=== PATIENT | male | born 1980 | race African-American/Black ===

== ENCOUNTER 2020-05-02 11:54 | Emergency (ER) | payer SELFPAY ==
--- NOTE | 2020-05-02 12:39 | EDM.PDOC ---
ED HPI GENERAL MEDICAL PROBLEM - General Chief Complaint: Lower Extremity Injury/Pain Stated Complaint: RIGHT LEG PAIN Time Seen by Provider: 05/02/20 12:07 Source of Information: Reports: Patient History Limitations: Reports: No Limitations - History of Present Illness INITIAL COMMENTS - FREE TEXT/NARRATIVE: Patient is a 39 year old male presenting to the ER with c/o right posterior calf pain for the last 2 months, with worsening pain over the last 2 days. He states that the pain is worse with ambulation. He denies and SOB or hx of blood clots. Denies a known injury to the extremity. Right Lower Leg Pain Score (Numeric/FACES): 5 - Related Data Allergies Allergy/AdvReac Type Severity Reaction Status Date / Time No Known Allergies Allergy Verified 05/02/20 12:06 Home Meds: Home Meds . [No Known Home Meds] 05/02/20 [History] Past Medical History - Past Health History Medical/Surgical History: Denies Medical/Surgical History Musculoskeletal History: Reports: Other (See Below) Other Musculoskeletal History: left inner thigh surgery Neurological History: Reports: Headaches, Chronic Social & Family History - Tobacco Use Smoking Status *Q: Current Every Day Smoker Years of Tobacco use: 20 Packs/Tins Daily: 0.5 - Caffeine Use Caffeine Use: Reports: None - Recreational Drug Use Recreational Drug Use: No Review of Systems - Review of Systems Review Of Systems: See Below Constitutional: Reports: No Symptoms. Denies: Chills, Fever, Weakness Eyes: Reports: No Symptoms Ears: Reports: No Symptoms Nose: Reports: No Symptoms Mouth/Throat: Reports: No Symptoms Respiratory: Reports: No Symptoms. Denies: Shortness of Breath, Cough Cardiovascular: Reports: No Symptoms. Denies: Chest Pain, Lightheadedness GI/Abdominal: Reports: No Symptoms Genitourinary: Reports: No Symptoms Musculoskeletal: Reports: Leg Pain (right posterior calf and popliteal fossa) Skin: Reports: No Symptoms Neurological: Reports: No Symptoms Psychiatric: Reports: No Symptoms ED EXAM, GENERAL - Physical Exam Exam: See Below General Appearance: Alert, WD/WN, No Apparent Distress Respiratory/Chest: No Respiratory Distress, Lungs Clear, Normal Breath Sounds, No Accessory Muscle Use, Chest Non-Tender Cardiovascular: Normal Peripheral Pulses, Regular Rate, Rhythm, No Edema, No Gallop, No JVD, No Murmur, No Rub Extremities: Other (tenderness to palpation of the right upper calf and popli teal fossa. No edema or warmth noted.) Neurological: Alert, Oriented, CN II-XII Intact, Normal Cognition, Normal Gait, Normal Reflexes, No Motor/Sensory Deficits Psychiatric: Normal Affect, Normal Mood Skin Exam: Warm, Dry, Intact, Normal Color, No Rash Course - Vital Signs Last Recorded V/S: Last Vital Signs Temp 98.9 F 05/02/20 12:46 Pulse 100 05/02/20 12:46 Resp 18 05/02/20 12:46 BP 157/92 H 05/02/20 13:42 Pulse Ox 96 05/02/20 12:46 - Orders/Labs/Meds Orders: Active Orders 24 hr Category Date Time Status VL Duplex Lwr Ext Veins Ltd Rt [US] Stat Exams 05/02/20 12:21 Taken - Re-Assessments/Exams Free Text/Narrative Re-Assessment/Exam: 05/02/20 14:08 Venous doppler u/s of the right lower extremity was negative for DVT. Discussed with patient that his discomfort is likely due to a muscle strain. Recommend OTC tylenol and ibuprofen as needed for pain. f/u in clinic if pain does not improve ofter the next week. Discharge instructions as documented. Departure - Departure Time of Disposition: 14:17 Disposition: Home, Self-Care 01 Condition: Good Clinical Impression: Muscle strain of right lower leg Qualifiers: Encounter type: initial encounter Qualified Code(s): S86.911A - Strain of unspecified muscle(s) and tendon(s) at lower leg level, right leg, initial encounter - Discharge Information *PRESCRIPTION DRUG MONITORING PROGRAM REVIEWED*: No *COPY OF PRESCRIPTION DRUG MONITORING REPORT IN PATIENT LIZBETH: No Instructions: Muscle Strain, [id number] Referrals: PCP,None [Primary Care Provider] - Forms: ED Department Discharge Additional Instructions: You were seen in the emergency department for right lower leg pain. An ultrasound of your leg was completed and was negative for blood clots. The cause of your pain is likely a muscle strain. Recommend over the counter tylenol or ibuprofen as needed for pain. If you are still having discomfort after 1 week, recommend follow-up in the clinic. Return to the ER as needed. Sepsis Event Note (ED) - Evaluation Sepsis Screening Result: No Definite Risk - Focused Exam Vital Signs: Vital Signs Temp Pulse Resp BP Pulse Ox 05/02/20 13:42 157/92 H 05/02/20 12:46 98.9 F 100 18 158/95 H 96 05/02/20 12:01 98.3 F 118 H 18 192/95 H 97 - My Orders Last 24 Hours: My Active Orders 05/02/20 12:21 VL Duplex Lwr Ext Veins Ltd Rt [US] Stat - Assessment/Plan Last 24 Hours: My Active Orders 05/02/20 12:21 VL Duplex Lwr Ext Veins Ltd Rt [US] Stat
--- NOTE | 2020-05-03 11:26 | US ---
Right lower extremity deep venous ultrasound: Duplex and color Doppler evaluation was obtained of the right common femoral, proximal greater saphenous, superficial femoral, popliteal, posterior tibial and peroneal veins. Left common femoral vein was also evaluated. Comparison: No prior venous imaging is available. Findings: Normal phasic flow, augmentation and compression is seen. Impression: 1. No evidence of venous thrombosis within the right lower extremity or within the left common femoral vein. Diagnostic code #1 Agree with preliminary report issued by [facility] ([facility] preliminary report dictated on 05/02/20, 2:51 PM Central Daylight Time) Study was dictated in MDT
== END 2020-05-02 14:30 | disposition home or self-care (01) ==
LOC: JD.ED 11:54
DX: S86.911A Strain of unspecified muscle(s) and tendon(s) at lower leg level, right leg, initial encounter (principal); F17.210 Nicotine dependence, cigarettes, uncomplicated; X58.XXXA Exposure to other specified factors, initial encounter
CPT/HCPCS: 93971-26-RT; 93971-RT; 99282; 99283-25

== ENCOUNTER 2020-09-19 02:49 | Emergency (ER) | payer SELFPAY ==
[2020-09-19] MEDS ORDERED: Ondansetron 4 MG/2 ML SDV IVPUSH ONE (03:02)
[2020-09-19] MEDS ORDERED: Nitroglycerin 0.4 MG Tab.SL SL ONE (03:02)
[2020-09-19] MEDS ORDERED: Nitroglycerin 0.4 MG Tab.SL ONE (03:03)
[2020-09-19] MEDS ORDERED: HYDROmorphone 0.5 MG/0.5 ML Syringe IVPUSH ONE (03:11)
--- NOTE | 2020-09-19 03:11 | EDM.PDOC ---
ED HPI GENERAL MEDICAL PROBLEM - General Chief Complaint: Chest Pain Stated Complaint: sob Time Seen by Provider: 09/19/20 02:53 Source of Information: Reports: Patient History Limitations: Reports: Language Barrier - History of Present Illness INITIAL COMMENTS - FREE TEXT/NARRATIVE: This is a 40-year-old male. He comes tonight with a 12-hour history of having epigastric pain. The pain is excruciating as he describes it. He states it is very sharp and throbbing and dull. It is constant with waxing and waning episodes. It does not seem to go into his chest or into his arm or into his jaw. He is obviously very uncomfortable and very anxious. Does state that he had some nausea and vomiting with it and anytime he tries to drink water or eat he will throw it back up. Patient states he does smoke and he does drink. Prior to coming to the ER he vomited 3 or 4 times and it seemed like the pain got worse. He does state that there might have been some small flecks of blood in the vomit. He has not been drinking alcohol for at least 1 week. He has no history of surgeries to his abdomen and no history of pancreatitis. His brother is here who speaks a little bit better Yi and were trying to get a good history from him. Chest Pain Score (Numeric/FACES): 10 - Related Data Allergies Allergy/AdvReac Type Severity Reaction Status Date / Time No Known Allergies Allergy Verified 09/19/20 02:54 Home Meds: Home Meds Ondansetron [Zofran] 4 mg PO Q6H PRN #20 tab 09/19/20 [Rx] Pantoprazole Sodium [Protonix] 40 mg PO QAM #40 tablet. 09/19/20 [Rx] Past Medical History - Past Health History Medical/Surgical History: Denies Medical/Surgical History Musculoskeletal History: Reports: Other (See Below) Other Musculoskeletal History: left inner thigh surgery Neurological History: Reports: Headaches, Chronic Social & Family History - Caffeine Use Caffeine Use: Reports: None ED ROS GENERAL - Review of Systems Review Of Systems: See Below Constitutional: Denies: Fever, Chills HEENT: Reports: No Symptoms Respiratory: Denies: Shortness of Breath, Cough Cardiovascular: Reports: Chest Pain Endocrine: Reports: No Symptoms GI/Abdominal: Reports: Abdominal Pain, Hematemesis, Nausea, Vomiting. Denies: Constipation, Diarrhea : Reports: No Symptoms Musculoskeletal: Reports: No Symptoms Skin: Reports: No Symptoms Neurological: Reports: No Symptoms Psychiatric: Reports: No Symptoms Hematologic/Lymphatic: Reports: No Symptoms ED EXAM, GENERAL - Physical Exam Exam: See Below Exam Limited By: Language Barrier General Appearance: Alert, WD/WN, Anxious, Moderate Distress Eye Exam: Bilateral Eye: Normal Inspection Ears: Normal External Exam Nose: Normal Inspection Throat/Mouth: Normal Inspection, Normal Lips, Normal Voice, No Airway Compromise Head: Normocephalic Neck: Supple Respiratory/Chest: No Respiratory Distress, Lungs Clear, Normal Breath Sounds Cardiovascular: Regular Rate, Rhythm, No Murmur, Tachycardia GI/Abdominal: Other (Min is very tight he complains of epigastric pain, if I push anywhere in the epigastric area it seems to worsen his pain that he is describing. He keeps his entire abdomen tight and will not relax it. Sounds are quiet.) Back Exam: Full Range of Motion Extremities: Normal Inspection, Normal Range of Motion Neurological: Alert, Oriented Psychiatric: Anxious Skin Exam: Warm, Dry #1 Interpretation EKG Date: 09/19/20 Time: 03:00 EKG Interpretation Comments: The initial EKG shows a sinus tachycardia rate of 128. He might have a slightly enlarged left atrial however there seems to be baseline artifact. His anterior leads V1, II and III suggest he might have some mild ST elevation but is not clear-cut. I do not see any obvious ischemia. I am concerned that he might have some ST injury occurring so we will watch him very closely. #2 Interpretation EKG Date: 09/19/20 Time: 04:15 EKG Interpretation Comments: This EKG still shows a sinus tachycardia but suggest LVH and an early normal repolarization variant rather than anterior injury. There is no acute ischemia noted. Course - Vital Signs Last Recorded V/S: Last Vital Signs Temp 97.5 F 09/19/20 05:41 Pulse 114 H 09/19/20 05:41 Resp 18 09/19/20 05:41 BP 157/78 H 09/19/20 05:41 Pulse Ox 99 09/19/20 05:41 - Orders/Labs/Meds Orders: Active Orders 24 hr Category Date Time Status EKG 12 Lead [EKG Documentation Completion] [RC] STAT Care 09/19/20 03:01 Active EKG 12 Lead [EKG Documentation Completion] [RC] STAT Care 09/19/20 04:10 Active Abdomen Ltd [US] Stat Exams 09/19/20 04:09 Taken Ang Chest w Cont [MR] Stat Exams 09/19/20 03:34 Taken CXR [Chest 1V Frontal] [CR] Stat Exams 09/19/20 03:03 Taken CBC WITH AUTO DIFF [HEME] Stat Lab 09/19/20 05:20 Results Sodium Chloride 0.9% [Normal Saline] 1,000 ml Med 09/19/20 03:15 Active IV ASDIRECTED Sodium Chloride 0.9% [Normal Saline] 100 ml Med 09/19/20 03:45 Active IV ASDIRECTED Sodium Chloride 0.9% [Saline Flush] Med 09/19/20 03:45 Active 10 ml FLUSH BOLUS Medication Orders Sodium Chloride (Normal Saline) 1,000 mls @ 500 mls/hr IV ASDIRECTED STEFF Last Admin: 09/19/20 03:10 Dose: 500 mls/hr Documented by: CHAYO Sodium Chloride (Normal Saline) 100 mls @ 60 drops/min IV ASDIRECTED STEFF Last Admin: 09/19/20 04:43 Dose: 60 drops/min Documented by: RHONDA Sodium Chloride (Saline Flush) 10 ml FLUSH BOLUS STEFF Last Admin: 09/19/20 04:44 Dose: 10 ml Documented by: ONEIGIN Labs: Laboratory Tests 09/19/20 09/19/20 09/19/20 Range/Units 03:04 03:04 03:04 WBC 16.76 H (4.23-9.07) K/mm3 RBC 4.26 L (4.63-6.08) M/mm3 Hgb 13.8 (13.7-17.5) gm/dl Hct 40.3 (40.1-51.0) % MCV 94.6 H (79.0-92.2) fl MCH 32.4 H (25.7-32.2) pg MCHC 34.2 (32.2-35.5) g/dl RDW Std Deviation 45.1 H (35.1-43.9) fL Plt Count 398 H (163-337) K/mm3 MPV 9.5 (9.4-12.3) fl Neut % (Auto) 87.5 H (34.0-67.9) % Lymph % (Auto) 5.8 L (21.8-53.1) % Lassen % (Auto) 6.4 (5.3-12.2) % Eos % (Auto) 0 L (0.8-7.0) Baso % (Auto) 0.1 (0.1-1.2) % Neut # (Auto) 14.66 H (1.78-5.38) K/mm3 Lymph # (Auto) 0.98 L (1.32-3.57) K/mm3 Lassen # (Auto) 1.07 H (0.30-0.82) K/mm3 Eos # (Auto) 0.00 L (0.04-0.54) K/mm3 Baso # (Auto) 0.01 (0.01-0.08) K/mm3 Manual Slide Review Abnormal smear D-Dimer, Quantitative 3.03 H (0.19-0.50) mg/L Sodium 131 L (136-145) mEq/L Potassium 4.8 (3.5-5.1) mEq/L Chloride 90 L (98-107) mEq/L Carbon Dioxide 14 L (21-32) mEq/L Anion Gap 31.8 H (5-15) BUN 13 (7-18) mg/dL Creatinine 1.1 (0.7-1.3) mg/dL Est Cr Clr Drug Dosing 69.24 mL/min Estimated GFR (MDRD) > 60 (>60) mL/min BUN/Creatinine Ratio 11.8 L (14-18) Glucose 109 H (74-106) mg/dL Calcium 8.8 (8.5-10.1) mg/dL Magnesium 1.9 (1.8-2.4) mg/dl Total Bilirubin 1.3 H (0.2-1.0) mg/dL AST 112 H (15-37) U/L ALT 70 H (16-63) U/L Alkaline Phosphatase 101 (46-116) U/L Troponin I < 0.017 (0.00-0.056) ng/mL C-Reactive Protein <0.2 (<1.0) mg/dL Total Protein 9.2 H (6.4-8.2) g/dl Albumin 4.6 (3.4-5.0) g/dl Globulin 4.6 gm/dL Albumin/Globulin Ratio 1.0 (1-2) Lipase 352 (73-393) U/L 09/19/20 09/19/20 Range/Units 05:20 05:20 WBC 15.57 H (4.23-9.07) K/mm3 RBC 3.59 L (4.63-6.08) M/mm3 Hgb 11.8 L D (13.7-17.5) gm/dl Hct 34.1 L (40.1-51.0) % MCV 95.0 H (79.0-92.2) fl MCH 32.9 H (25.7-32.2) pg MCHC 34.6 (32.2-35.5) g/dl RDW Std Deviation 44.8 H (35.1-43.9) fL Plt Count 337 (163-337) K/mm3 MPV 8.9 L (9.4-12.3) fl Neut % (Auto) 86.6 H (34.0-67.9) % Lymph % (Auto) 5.4 L (21.8-53.1) % Lassen % (Auto) 7.7 (5.3-12.2) % Eos % (Auto) 0 L (0.8-7.0) Baso % (Auto) 0.1 (0.1-1.2) % Neut # (Auto) 13.49 H (1.78-5.38) K/mm3 Lymph # (Auto) 0.84 L (1.32-3.57) K/mm3 Lassen # (Auto) 1.20 H (0.30-0.82) K/mm3 Eos # (Auto) 0.00 L (0.04-0.54) K/mm3 Baso # (Auto) 0.01 (0.01-0.08) K/mm3 Manual Slide Review D-Dimer, Quantitative (0.19-0.50) mg/L Sodium 131 L (136-145) mEq/L Potassium 5.3 H (3.5-5.1) mEq/L Chloride 95 L (98-107) mEq/L Carbon Dioxide 15 L (21-32) mEq/L Anion Gap 26.3 H (5-15) BUN 11 (7-18) mg/dL Creatinine 0.9 (0.7-1.3) mg/dL Est Cr Clr Drug Dosing 84.63 mL/min Estimated GFR (MDRD) > 60 (>60) mL/min BUN/Creatinine Ratio 12.2 L (14-18) Glucose 80 (74-106) mg/dL Calcium 8.0 L (8.5-10.1) mg/dL Magnesium (1.8-2.4) mg/dl Total Bilirubin (0.2-1.0) mg/dL AST (15-37) U/L ALT (16-63) U/L Alkaline Phosphatase (46-116) U/L Troponin I < 0.017 (0.00-0.056) ng/mL C-Reactive Protein (<1.0) mg/dL Total Protein (6.4-8.2) g/dl Albumin (3.4-5.0) g/dl Globulin gm/dL Albumin/Globulin Ratio (1-2) Lipase (73-393) U/L Meds: Medications Generic Name Dose Route Start Last Admin Trade Name Freq PRN Reason Stop Dose Admin Sodium Chloride 1,000 mls @ 500 mls/hr 09/19/20 03:15 09/19/20 03:10 Normal Saline IV 500 mls/hr ASDIRECTED STEFF Administration Sodium Chloride 100 mls @ 60 drops/min 09/19/20 03:45 09/19/20 04:43 Normal Saline IV 60 drops/min ASDIRECTED STEFF Administration Sodium Chloride 10 ml 09/19/20 03:45 09/19/20 04:44 Saline Flush FLUSH 10 ml BOLUS STEFF Administration Discontinued Medications Generic Name Dose Route Start Last Admin Trade Name Freq PRN Reason Stop Dose Admin Al Hydroxide/Mg Hydroxide 30 0 ml 09/19/20 04:25 09/19/20 04:32 ml/ Lidocaine HCl 15 ml PO 09/19/20 04:26 45 ml ONETIME ONE Administration Hydromorphone HCl 0.5 mg 09/19/20 03:11 09/19/20 03:13 Dilaudid IVPUSH 09/19/20 03:12 0.5 mg ONETIME ONE Administration Hydromorphone HCl Confirm 09/19/20 03:12 09/19/20 03:21 Dilaudid Administered 09/19/20 03:13 Not Given Dose 0.5 mg .ROUTE .STK-MED ONE Iopamidol 100 ml 09/19/20 03:40 09/19/20 04:43 Isovue-370 (76%) IVPUSH 09/19/20 03:41 100 ml ONETIME ONE Administration Nitroglycerin 0.4 mg 09/19/20 03:02 09/19/20 03:03 Nitrostat SL 09/19/20 03:03 0.4 mg ONETIME ONE Administration Nitroglycerin Confirm 09/19/20 03:03 09/19/20 03:10 Nitrostat Administered 09/19/20 03:04 Not Given Dose 0.4 mg .ROUTE .STK-MED ONE Ondansetron HCl 4 mg 09/19/20 03:02 09/19/20 03:10 Zofran IVPUSH 09/19/20 03:03 4 mg ONETIME ONE Administration Pantoprazole Sodium 40 mg 09/19/20 03:18 09/19/20 03:25 Protonix Iv IVPUSH 09/19/20 03:19 40 mg ONETIME ONE Administration - Radiology Interpretation Free Text/Narrative:: X-ray does not show any acute infiltrates and his heart appears to be small. I do not see an air outline of the heart to suggest a esophageal tear or Imelda- Gamez tear. Angios CT scan shows no evidence of a pulmonary emboli. He does show circumferential wall thickening of the distal esophagus suggesting esophagitis and is got hepatomegaly with diffuse fatty infiltration. Ultrasound of the upper abdomen shows a diffuse fatty infiltration of the liver but no focal lesions. His gallbladder was normal with no gallbladder stones or wall thickening pancreas appear to be unremarkable. There are no acute fi ndings. - Re-Assessments/Exams Free Text/Narrative Re-Assessment/Exam: 09/19/20 03:22 We provided a single nitroglycerin and it seemed to help and we gave him some Zofran some Dilaudid and Protonix which is made a big difference in his pain and he settled down considerably and is not so anxious. 09/19/20 04:11 Patient is feeling much better after getting back from CT scan. His troponin and lipase and C-reactive protein are all normal. If he has been hurting for the last 12 hours we should see a bump in the troponin. I will repeat an EKG now that he settled down and seems to be much more comfortable. I am also going to get a upper abdominal ultrasound regarding his liver gallbladder and pancreas both. It is noted that his total bili is 1.3. And he has mildly elevated liver enzymes. 09/19/20 04:23 Patient indicates that when he does drink he will take a bottle of [employer] which is RUM and it takes him about 3 days to drink the bottle. He does not normally drink when he works but is just when he is off work. 09/19/20 04:25 Looked up and found to [employer] is 100 proof or 50% alcohol. 09/19/20 05:01 Once the patient settled down were able to take him off his oxygen and his pulse ox is running 96 to 98% on room air. 09/19/20 05:01 He was complaining of a lot of burning in the epigastric area so we gave him a GI cocktail that seemed to numb that area up in the burning almost completely resolved. He is feeling much better now although he still somewhat shaky. 09/19/20 05:25 Ultrasound of the upper abdomen shows a diffuse fatty infiltration of the liver but no focal lesions. His gallbladder was normal with no gallbladder stones or wall thickening pancreas appear to be unremarkable. There are no acute findings. 09/19/20 06:07 His repeat troponin was normal. His white counts began to come down and note the dilution of the hemoglobin by the fluids we gave him. His anion gap is dropping as well as we rehydrate him. I explained to him that he has alcoholic gastritis and esophagitis causing his severe pain and his nausea and vomiting. He must stop drinking alcohol. He is good to be on clear liquid for at least 24 hours and then very soft foods for at least [address] him on some Protonix give him something for nausea and vomiting. Departure - Departure Time of Disposition: 06:13 Disposition: Home, Self-Care 01 Condition: Fair Clinical Impression: Esophagitis, Dehydration Alcoholic gastritis Qualifiers: Chronicity: acute Gastritis bleeding: without bleeding Qualified Code(s): K29.20 - Alcoholic gastritis without bleeding Nausea and vomiting Qualifiers: Vomiting type: unspecified Vomiting Intractability: non-intractable Qualified Code(s): R11.2 - Nausea with vomiting, unspecified Prescriptions: Pantoprazole Sodium [Protonix] 40 mg PO QAM #40 tablet.dr Ondansetron [Zofran] 4 mg PO Q6H PRN #20 tab PRN Reason: Nausea Instructions: Dehydration, Adult, [id number], Nausea and Vomiting, Adult, [id number] Referrals: PCP,None [Primary Care Provider] - Forms: ED Department Discharge, ED Return to Work/School Form Additional Instructions: Take the prescription this morning and get them filled and take the Protonix twice a day for 5 days and then once a day after that, use the Zofran as needed for nausea and vomiting, get some [id number] Maalox or milk of magnesia and when you feel the burning take 30 cc of the Maalox or milk of magnesia to help stop that burning, do not drink alcohol anymore, rest and sleep is much as possible, drink only fluids with no sodas or citrus for the next 24 hours, after that you may have soft foods like applesauce and yogurt but no meats and no vegetables for at least 72 hours, if your symptoms seem to worsen return to the ER, follow-up with your family doctor this week for recheck. Sepsis Event Note (ED) - Focused Exam Vital Signs: Vital Signs Temp Pulse Resp BP BP Pulse Ox 09/19/20 05:41 97.5 F 114 H 18 157/78 H 99 09/19/20 03:03 156/88 H 09/19/20 02:54 97.5 F 137 H 18 157/98 H 100 - My Orders Last 24 Hours: My Active Orders 09/19/20 03:01 EKG 12 Lead [EKG Documentation Completion] [RC] STAT 09/19/20 03:03 CXR [Chest 1V Frontal] [CR] Stat 09/19/20 03:15 Sodium Chloride 0.9% [Normal Saline] 1,000 ml IV ASDIRECTED 09/19/20 03:34 Ang Chest w Cont [MR] Stat 09/19/20 03:45 Sodium Chloride 0.9% [Normal Saline] 100 ml IV ASDIRECTED Sodium Chloride 0.9% [Saline Flush] 10 ml FLUSH BOLUS 09/19/20 04:09 Abdomen Ltd [US] Stat 09/19/20 04:10 EKG 12 Lead [EKG Documentation Completion] [RC] STAT 09/19/20 05:20 CBC WITH AUTO DIFF [HEME] Stat - Assessment/Plan Last 24 Hours: My Active Orders 09/19/20 03:01 EKG 12 Lead [EKG Documentation Completion] [RC] STAT 09/19/20 03:03 CXR [Chest 1V Frontal] [CR] Stat 09/19/20 03:15 Sodium Chloride 0.9% [Normal Saline] 1,000 ml IV ASDIRECTED 09/19/20 03:34 Ang Chest w Cont [MR] Stat 09/19/20 03:45 Sodium Chloride 0.9% [Normal Saline] 100 ml IV ASDIRECTED Sodium Chloride 0.9% [Saline Flush] 10 ml FLUSH BOLUS 09/19/20 04:09 Abdomen Ltd [US] Stat 09/19/20 04:10 EKG 12 Lead [EKG Documentation Completion] [RC] STAT 09/19/20 05:20 CBC WITH AUTO DIFF [HEME] Stat
[2020-09-19] MEDS ORDERED: HYDROmorphone 0.5 MG/0.5 ML Syringe ONE (03:12)
[2020-09-19] MEDS ORDERED: Sodium Chloride 0.9% 1,000 ML IV SCH (03:15)
[2020-09-19] MEDS ORDERED: Pantoprazole 40 MG Vial IVPUSH ONE ×2 (03:18→06:12)
[2020-09-19] MEDS ORDERED: Iopamidol 755 Mg/ML 100 ML Bottle IVPUSH ONE (03:40)
[2020-09-19] MEDS ORDERED: Sodium Chloride 0.9% 10 ML Syringe FLUSH SCH (03:45)
[2020-09-19] MEDS ORDERED: Sodium Chloride 0.9% 100 ML IV SCH (03:45)
[2020-09-19] MEDS ORDERED: Alum Hydrox/Mag Hydrox/Simeth 30 ML, Lidocaine 2% 15 ML PO ONE ×2 (04:25)
--- NOTE | 2020-09-19 10:16 | MR ---
CT chest Technique: Multiple axial sections through the chest were obtained. Intravenous contrast was utilized. Study has been performed as a pulmonary angiogram protocol. Comparison: No prior chest imaging is available. Findings: Pulmonary arteries are well opacified. No filling defects are seen to indicate pulmonary embolism. Thoracic aorta shows no aneurysm. Mediastinum shows no adenopathy. No pericardial thickening is seen. Small hiatal hernia is noted with thickening within the distal esophagus most likely relating to reflux esophagitis. Visualized upper abdominal structures show no other discrete abnormality other than a cyst within the upper left kidney measuring about 1.0 cm. Lung window settings were reviewed. No acute parenchymal change is appreciated within either lung. Bone window settings were reviewed which show no acute osseous finding. Impression: 1. No findings of pulmonary embolism. 2. Hiatal hernia with mild esophageal wall thickening compatible with probable reflux esophagitis. 3. No other acute abnormality is appreciated. Diagnostic code #2 I mostly agree with preliminary report from [facility], finalized on 09/19/20, 6:05 AM CABIN AGENT
--- NOTE | 2020-09-19 10:17 | US ---
Limited abdominal ultrasound: Multiple real-time images of the upper right abdomen were obtained. Comparison: No prior abdominal imaging is available. Findings: Liver is slightly echogenic as related to the right kidney most likely related to mild fatty infiltration. Gallbladder contains no shadowing gallstones. No gallbladder wall thickening or biliary duct dilatation is appreciated. Right kidney shows no hydronephrosis or discrete mass. Right kidney has a length of 10.1 cm. The portion of the pancreas that is seen shows no focal abnormality. Inferior vena cava is patent. Main portal vein shows normal hepatopedal flow. Impression: 1. Mild diffuse fatty infiltration within the liver. 2. Nothing acute is otherwise seen on ultrasound study of the right upper quadrant. Diagnostic code #2 I agree with preliminary report from [facility], finalized on 09/19/20, 6:23 AM DIESEL TRACTOR ENGINE MECHANIC
--- NOTE | 2020-09-20 08:52 | CR ---
Chest: Portable view of the chest was obtained. Comparison: No prior chest x-rays are available, subsequent chest CT performed later on the same date (4:00 AM). Heart size and mediastinum are normal. Lungs are clear with no acute parenchymal change. No acute osseous finding is seen. Impression: 1. Nothing acute is seen on portable chest x-ray. Diagnostic code #1
--- NOTE | 2020-09-21 11:03 | CT ---
CT chest Technique: Multiple axial sections through the chest were obtained. Intravenous contrast was utilized. Study has been performed as a pulmonary angiogram protocol. Comparison: No prior chest imaging is available. Findings: Pulmonary arteries are well opacified. No filling defects are seen to indicate pulmonary embolism. Thoracic aorta shows no aneurysm. Mediastinum shows no adenopathy. No pericardial thickening is seen. Small hiatal hernia is noted with thickening within the distal esophagus most likely relating to reflux esophagitis. Visualized upper abdominal structures show no other discrete abnormality other than a cyst within the upper left kidney measuring about 1.0 cm. Lung window settings were reviewed. No acute parenchymal change is appreciated within either lung. Bone window settings were reviewed which show no acute osseous finding. Impression: 1. No findings of pulmonary embolism. 2. Hiatal hernia with mild esophageal wall thickening compatible with probable reflux esophagitis. 3. No other acute abnormality is appreciated. Diagnostic code #2 I mostly agree with preliminary report from [facility], finalized on 09/19/20, 6:05 AM YUE STEPHEN
== END 2020-09-19 06:32 | disposition home or self-care (01) ==
LOC: JD.ED 02:49
DX: E86.0 Dehydration (principal); K29.20 Alcoholic gastritis without bleeding; K20.90 Esophagitis, unspecified without bleeding; R00.0 Tachycardia, unspecified; F17.200 Nicotine dependence, unspecified, uncomplicated
CPT/HCPCS: 36415; 71045; 71275; 76705; 80048; 80053; 83690; 83735; 84484; 85025; 85379; 86140; 93005; 96374; 96375; 96376; 99285; A9270; C9113; J1170; J2405; J7030; Q9967; 71555; 71555-26; 93010; 99284

== ENCOUNTER 2020-09-21 10:35 | Emergency (ER) | payer SELFPAY ==
[2020-09-21] MEDS ORDERED: Sodium Chloride 0.9% 10 ML Syringe FLUSH PRN ×2 (11:16→12:22)
[2020-09-21] MEDS ORDERED: Sodium Chloride 0.9% 1,000 ML IV ONE ×2 (11:23→12:58)
--- NOTE | 2020-09-21 11:23 | EDM.PDOC ---
ED HPI GENERAL MEDICAL PROBLEM - General Chief Complaint: Chest Pain Stated Complaint: CHEST PAIN / SOB Time Seen by Provider: 09/21/20 11:05 Source of Information: Reports: Patient History Limitations: Reports: No Limitations, Other (ED vital signs reveal a temp of 99.8, pulse 110, respiratory rate 22, blood pressure 154/104, pulse ox 100% on room air.) - History of Present Illness INITIAL COMMENTS - FREE TEXT/NARRATIVE: 40-year-old male presents to the ER with complaints of chest pain. States this started about 12 hours ago. He was seen in the emergency department 2 days ago with complaints of chest pain and shortness of breath. Full cardiac work-up was unremarkable however he was diagnosed with gastritis. He was sent home with prescription for Protonix and Zofran for which he states he has been taking. He does have a significant history of alcohol intake and smoking however he states that he quit drinking alcohol 3 weeks ago and quit smoking 6 days ago. He states he is only been able to drink water since his most recent ER visit as when he eats or really drinks anything he has epigastric burning. Denies complaints of radiation of this current discomfort. Denies any recent fever, chills, vomiting or diarrhea. However he states he has had nausea but the Zofran has been helping. He does not have a primary care physician. Abdomen Pain Score (Numeric/FACES): 10 - Related Data Allergies Allergy/AdvReac Type Severity Reaction Status Date / Time No Known Allergies Allergy Verified 09/21/20 10:59 Home Meds: Home Meds Ondansetron [Zofran] 4 mg PO Q6H PRN #20 tab 09/19/20 [Rx] Pantoprazole Sodium [Protonix] 40 mg PO QAM #40 tablet. 09/19/20 [Rx] Sucralfate [Carafate] 1 gm PO QIDACANDBED #28 cup 09/21/20 [Rx] Past Medical History - Past Health History Medical/Surgical History: Denies Medical/Surgical History Musculoskeletal History: Reports: Other (See Below) Other Musculoskeletal History: left inner thigh surgery Neurological History: Reports: Headaches, Chronic Social & Family History - Tobacco Use Tobacco Use Status *Q: Former Tobacco User Years of Tobacco use: 20 Packs/Tins Daily: 0.5 Used Tobacco, but Quit: Yes Month/Year Tobacco Last Used: Sep 2020 - Caffeine Use Caffeine Use: Reports: Energy Drinks, Soda - Recreational Drug Use Recreational Drug Use: No ED ROS GENERAL - Review of Systems Review Of Systems: Comprehensive ROS is negative, except as noted in HPI. ED EXAM, GENERAL - Physical Exam Exam: See Below Exam Limited By: No Limitations General Appearance: Alert, WD/WN, Mild Distress Eye Exam: Bilateral Eye: PERRL Ears: Hearing Grossly Normal Nose: Normal Inspection Throat/Mouth: Normal Inspection, Normal Voice, No Airway Compromise Head: Atraumatic, Normocephalic Neck: Normal Inspection, Supple, Non-Tender, Full Range of Motion Respiratory/Chest: No Respiratory Distress, Lungs Clear, Normal Breath Sounds, No Accessory Muscle Use, Chest Non-Tender Cardiovascular: Normal Peripheral Pulses, Regular Rate, Rhythm, No Edema, No Murmur Peripheral Pulses: 2+: Radial (L), Radial (R) GI/Abdominal: Normal Bowel Sounds, Soft, No Distention, Tender (Epigastric area/upper abdomen) (Male) Exam: Deferred Rectal (Males) Exam: Deferred Back Exam: Normal Inspection, Full Range of Motion Extremities: Normal Inspection, Normal Range of Motion, Non-Tender, No Pedal Edema, Normal Capillary Refill Neurological: Alert, Oriented, Normal Cognition Psychiatric: Normal Affect, Normal Mood Skin Exam: Warm, Dry, Intact, Normal Color, No Rash Lymphatic: No Adenopathy #1 Interpretation EKG Date: 09/21/20 Time: 10:45 Rhythm: NSR Rate (Beats/Min): 111 P-Wave: Present QRS: Normal ST-T: Normal QT: Normal EKG Interpretation Comments: Per Dr. Green interpretation: Sinus rhythm, normal QRS, other than Qs in III, QTc lengthened at 536 Course - Vital Signs Text/Narrative:: 40-year-old male with complaints of chest pain, specifically epigastric pain. Recently treated in the emergency department 2 days ago. Patient states he has been unable to eat and has only been drinking water for the past 2 days because when he eats it ruth in his epigastric area. On assessment his lung sounds are clear. Heart rate is regular and no murmurs are appreciated. On palpation he reports significant pain to his upper mid abdomen and the remainder of his assessment is unremarkable. He is requesting a GI cocktail as he states this helped him the other day. I have ordered for the patient to receive a GI cocktail. I have also ordered a CBC, CMP, magnesium, C-reactive protein, EKG, blood alcohol level, and a chest x-ray. I will order for the patient to receive a liter of IV fluids as he is likely dehydrated not having been able to eat or drink much over the past 2 days. Last Recorded V/S: Last Vital Signs Temp 99.9 F 09/21/20 14:30 Pulse 90 09/21/20 14:30 Resp 16 09/21/20 14:30 BP 135/87 09/21/20 14:30 Pulse Ox 97 09/21/20 14:30 - Orders/Labs/Meds Orders: Active Orders 24 hr Category Date Time Status EKG Documentation Completion [RC] STAT Care 09/21/20 12:37 Active Sodium Chloride 0.9% [Saline Flush] Med 09/21/20 11:16 Active 10 ml FLUSH ASDIRECTED PRN Sodium Chloride 0.9% [Saline Flush] Med 09/21/20 12:22 Active 10 ml FLUSH ONETIME PRN Saline Lock Insert [OM.PC] Stat Oth 09/21/20 11:16 Ordered Medication Orders Sodium Chloride (Saline Flush) 10 ml FLUSH ASDIRECTED PRN PRN Reason: Keep Vein Open Last Admin: 09/21/20 10:50 Dose: 10 ml Documented by: SHANDA Sodium Chloride (Saline Flush) 10 ml FLUSH ONETIME PRN PRN Reason: IV FLUSH Last Admin: 09/21/20 12:33 Dose: 10 ml Documented by: COLTON Labs: Laboratory Tests 09/21/20 09/21/20 09/21/20 Range/Units 10:50 10:50 10:50 WBC 6.70 (4.23-9.07) K/mm3 RBC 3.95 L (4.63-6.08) M/mm3 Hgb 12.8 L (13.7-17.5) gm/dl Hct 36.5 L (40.1-51.0) % MCV 92.4 H (79.0-92.2) fl MCH 32.4 H (25.7-32.2) pg MCHC 35.1 (32.2-35.5) g/dl RDW Std Deviation 45.1 H (35.1-43.9) fL Plt Count 273 (163-337) K/mm3 MPV 10.4 (9.4-12.3) fl Neut % (Auto) 69.1 H (34.0-67.9) % Lymph % (Auto) 13.7 L (21.8-53.1) % [place] % (Auto) 16.6 H (5.3-12.2) % Eos % (Auto) 0.1 L (0.8-7.0) Baso % (Auto) 0.4 (0.1-1.2) % Neut # (Auto) 4.62 (1.78-5.38) K/mm3 Lymph # (Auto) 0.92 L (1.32-3.57) K/mm3 [place] # (Auto) 1.11 H (0.30-0.82) K/mm3 Eos # (Auto) 0.01 L (0.04-0.54) K/mm3 Baso # (Auto) 0.03 (0.01-0.08) K/mm3 Manual Slide Review Abnormal smear Sodium 135 L (136-145) mEq/L Potassium 3.3 L D (3.5-5.1) mEq/L Chloride 95 L (98-107) mEq/L Carbon Dioxide 26 D (21-32) mEq/L Anion Gap 17.3 H (5-15) BUN 4 L (7-18) mg/dL Creatinine 0.7 (0.7-1.3) mg/dL Est Cr Clr Drug Dosing 117.09 mL/min Estimated GFR (MDRD) > 60 (>60) mL/min BUN/Creatinine Ratio 5.7 L (14-18) Glucose 123 H (74-106) mg/dL Lactic Acid (0.4-2.0) mmol/L Calcium 10.0 D (8.5-10.1) mg/dL Magnesium 2.0 (1.8-2.4) mg/dl Total Bilirubin 0.8 (0.2-1.0) mg/dL AST 33 (15-37) U/L ALT 35 (16-63) U/L Alkaline Phosphatase 74 (46-116) U/L Troponin I < 0.017 (0.00-0.056) ng/mL C-Reactive Protein 2.0 H* (<1.0) mg/dL Total Protein 8.2 (6.4-8.2) g/dl Albumin 3.8 (3.4-5.0) g/dl Globulin 4.4 gm/dL Albumin/Globulin Ratio 0.9 L (1-2) Lipase 742 H (73-393) U/L Urine Color (Yellow) Urine Appearance (Clear) Urine pH (5.0-8.0) Ur Specific [place] (1.005-1.030) Urine Protein (Negative) Urine Glucose (UA) (Negative) Urine Ketones (Negative) Urine Occult Blood (Negative) Urine Nitrite (Negative) Urine Bilirubin (Negative) Urine Urobilinogen (0.2-1.0) Ur Leukocyte Esterase (Negative) Ethyl Alcohol 0.00 (0.00) gm% 09/21/20 09/21/20 Range/Units 13:06 13:45 WBC (4.23-9.07) K/mm3 RBC (4.63-6.08) M/mm3 Hgb (13.7-17.5) gm/dl Hct (40.1-51.0) % MCV (79.0-92.2) fl MCH (25.7-32.2) pg MCHC (32.2-35.5) g/dl RDW Std Deviation (35.1-43.9) fL Plt Count (163-337) K/mm3 MPV (9.4-12.3) fl Neut % (Auto) (34.0-67.9) % Lymph % (Auto) (21.8-53.1) % [place] % (Auto) (5.3-12.2) % Eos % (Auto) (0.8-7.0) Baso % (Auto) (0.1-1.2) % Neut # (Auto) (1.78-5.38) K/mm3 Lymph # (Auto) (1.32-3.57) K/mm3 [place] # (Auto) (0.30-0.82) K/mm3 Eos # (Auto) (0.04-0.54) K/mm3 Baso # (Auto) (0.01-0.08) K/mm3 Manual Slide Review Sodium (136-145) mEq/L Potassium (3.5-5.1) mEq/L Chloride (98-107) mEq/L Carbon Dioxide (21-32) mEq/L Anion Gap (5-15) BUN (7-18) mg/dL Creatinine (0.7-1.3) mg/dL Est Cr Clr Drug Dosing mL/min Estimated GFR (MDRD) (>60) mL/min BUN/Creatinine Ratio (14-18) Glucose (74-106) mg/dL Lactic Acid 0.8 (0.4-2.0) mmol/L Calcium (8.5-10.1) mg/dL Magnesium (1.8-2.4) mg/dl Total Bilirubin (0.2-1.0) mg/dL AST (15-37) U/L ALT (16-63) U/L Alkaline Phosphatase (46-116) U/L Troponin I (0.00-0.056) ng/mL C-Reactive Protein (<1.0) mg/dL Total Protein (6.4-8.2) g/dl Albumin (3.4-5.0) g/dl Globulin gm/dL Albumin/Globulin Ratio (1-2) Lipase (73-393) U/L Urine Color Light yellow (Yellow) Urine Appearance Clear (Clear) Urine pH 7.0 (5.0-8.0) Ur Specific [place] 1.015 (1.005-1.030) Urine Protein Negative (Negative) Urine Glucose (UA) Negative (Negative) Urine Ketones Negative (Negative) Urine Occult Blood Negative (Negative) Urine Nitrite Negative (Negative) Urine Bilirubin Negative (Negative) Urine Urobilinogen 0.2 (0.2-1.0) Ur Leukocyte Esterase Negative (Negative) Ethyl Alcohol (0.00) gm% Meds: Medications Generic Name Dose Route Start Last Admin Trade Name Freq PRN Reason Stop Dose Admin Sodium Chloride 10 ml 09/21/20 11:16 09/21/20 10:50 Saline Flush FLUSH 10 ml ASDIRECTED PRN Administration Keep Vein Open Sodium Chloride 10 ml 09/21/20 12:22 09/21/20 12:33 Saline Flush FLUSH 10 ml ONETIME PRN Administration IV FLUSH Discontinued Medications Generic Name Dose Route Start Last Admin Trade Name Freq PRN Reason Stop Dose Admin Al Hydroxide/Mg Hydroxide 30 0 ml 09/21/20 11:27 09/21/20 11:36 ml/ Lidocaine HCl 15 ml PO 09/21/20 11:28 45 ml ONETIME ONE Administration Sodium Chloride 1,000 mls @ 999 mls/hr 09/21/20 11:23 09/21/20 11:36 Normal Saline IV 09/21/20 12:23 999 mls/hr ONETIME ONE Administration Potassium Chloride 10 meq/ 100 mls @ 100 mls/hr 09/21/20 12:45 09/21/20 14:30 Premix IV 09/21/20 14:44 100 mls/hr Q1H STEFF Administration Sodium Chloride 1,000 mls @ 999 mls/hr 09/21/20 12:58 09/21/20 13:05 Normal Saline IV 09/21/20 13:58 999 mls/hr ONETIME ONE Administration Iopamidol 100 ml 09/21/20 12:22 09/21/20 12:33 Isovue-300 (61%) IVPUSH 09/21/20 12:23 100 ml ONETIME ONE Administration Sucralfate 1 gm 09/21/20 13:30 09/21/20 13:31 Carafate PO 09/21/20 13:31 1 gm ONETIME ONE Administration - Radiology Interpretation Free Text/Narrative:: CT of the abdomen and pelvis radiology impression: Liver shows minimal fatty infiltration. Slight amount of focal fat is noted within the interlobar fissure which is within normal limits. Very minimal low-density lesion is identified within the right lobe measuring 3 mm. This is nonspecific due to its small size but statistically is more likely due to a cyst. There is thickening of the distal esophagus most likely relating to reflux esophagitis. Spleen appears normal in size. Spleen shows a low-density lesion having the appearance of a cyst measuring approximately 6 mm. No additional abnormality is seen within the spleen. Kidney shows symmetric contrast enhancement. Left kidney shows a small low-density lesion within the midpole which is too small to measure by Hounsfield units but measures about 4 mm in length. No additional abnormalities are seen within the kidneys. Pancreas is within normal limits. No retroperitoneal adenopathy or mesenteric abnormalities are noted. Small amount of fluid is seen within the pelvis. Etiology of this fluid is not appreciated on this exam with certainty. Appendix is seen which is normal in size. No discrete bowel abnormalities are definitely appreciated. - Re-Assessments/Exams Free Text/Narrative Re-Assessment/Exam: 09/21/20 12:22 Labs reveal a WBC of 6.70, hemoglobin 12.8, hematocrit 36.5, sodium 135, potassium 3.3, anion gap 17.3, BUN 4, creatinine 0.7, glucose 123, magnesium 2.0, total bilirubin 0.8, AST 33, ALT 35, alk phos 74, troponin less than 0.017, C-reactive protein 2.0, lipase 742. Have compared his lab work to the lab work that was completed 2 days ago. His potassium is decreased so we will supplement this, anion gap is still elevated and he is receiving IV fluids. Glucose is 123 which is slightly elevated liver functions are normal, C-reactive protein is slightly elevated, and his lipase has almost doubled in the past 2 days. With his history of alcohol abuse I have ordered a CT of the abdomen and pelvis to rule out pancreatitis as patient did have an ultrasound of the abdomen 2 days ago which was unremarkable. His temp is also slightly elevated in the emergency department of 99.6 and he is tachycardic and tachypneic which is worrisome for pancreatitis. 09/21/20 12:28 Patient states that after the GI cocktail his pain is almost completely gone. 09/21/20 12:29 I have added a lactic acid to his studies to rule out sepsis. 09/21/20 12:34 Nothing acute is appreciated on portable chest x-ray per the radiologist report. 09/21/20 13:30 Nursing staff reports that the patient's epigastric discomfort is returning. I have ordered for 1 g of Carafate. 09/21/20 14:14 Patient's lactic acid level is 0.8. Urinalysis is completely unremarkable. Patient reports that he has relief of the chest discomfort/burning after receiving the Carafate. Patient will be discharged home with a prescription for Carafate 4 times daily 1 hour before meals. He will need to continue taking his Protonix 1 hour before breakfast. He will need to be on a bland soft diet for the next 48 to 72 hours. And he will also need to follow-up with his primary care provider by the end of this week. Patient does not have a primary care physician so we will give him a list. Departure - Departure Time of Disposition: 15:50 Disposition: Home, Self-Care 01 Condition: Fair Clinical Impression: Esophagitis Prescriptions: Sucralfate [Carafate] 1 gm PO QIDACANDBED #28 cup Instructions: Esophagitis, Soft-Food Eating Plan Referrals: PCP,None [Primary Care Provider] - Forms: ED Department Discharge Additional Instructions: You were seen in the emergency department today with complaints of chest pain. Full cardiac work-up was completed and it was unremarkable for cardiac origin of your chest pain, however CT scan was performed and this did show esophagitis. Your potassium level was slightly low so you were given potassium in your IV. You will be discharged to home with a prescription for Carafate 1 g. You need to take this 4 times a day 1 hour before meals and at bedtime. Continue taking your Protonix first thing in the morning at least an hour before breakfast. You may eat a bland soft diet for the next 48 hours and then advance as tolerated. Do not drink only water as this will likely irritate the esophagitis. You need to follow-up with your primary care physician by the end of this week. We have given you a list of local providers. Sepsis Event Note (ED) - Evaluation Sepsis Screening Result: No Definite Risk - Focused Exam Vital Signs: Vital Signs Temp Pulse Resp BP Pulse Ox 09/21/20 14:30 99.9 F 90 16 135/87 97 09/21/20 13:16 100.1 F 80 17 151/91 H 98 09/21/20 10:40 99.8 F 110 H 22 H 154/104 H 100 - My Orders Last 24 Hours: My Active Orders 09/21/20 11:16 Sodium Chloride 0.9% [Saline Flush] 10 ml FLUSH ASDIRECTED PRN Saline Lock Insert [OM.PC] Stat 09/21/20 12:22 Sodium Chloride 0.9% [Saline Flush] 10 ml FLUSH ONETIME PRN 09/21/20 12:37 EKG Documentation Completion [RC] STAT - Assessment/Plan Last 24 Hours: My Active Orders 09/21/20 11:16 Sodium Chloride 0.9% [Saline Flush] 10 ml FLUSH ASDIRECTED PRN Saline Lock Insert [OM.PC] Stat 09/21/20 12:22 Sodium Chloride 0.9% [Saline Flush] 10 ml FLUSH ONETIME PRN 09/21/20 12:37 EKG Documentation Completion [RC] STAT
[2020-09-21] MEDS ORDERED: Alum Hydrox/Mag Hydrox/Simeth 30 ML, Lidocaine 2% 15 ML PO ONE ×2 (11:27)
--- NOTE | 2020-09-21 11:51 | CR ---
Chest: Portable view of the chest was obtained. Comparison: Prior chest x-ray of 09/19/20. Heart size and mediastinum are within normal limits for portable technique. Lungs are clear with no acute parenchymal change. No acute osseous finding is appreciated. Impression: 1. Nothing acute is seen on portable chest x-ray. Diagnostic code #1
[2020-09-21] MEDS ORDERED: Iopamidol 612 MG/ML 100 ML Bottle IVPUSH ONE (12:22)
[2020-09-21] MEDS: Potassium Chloride 10 MEQ in Premix Bag 1 BAG IV SCH ×2 (13:10→14:30)
--- NOTE | 2020-09-21 13:13 | CT ---
CT abdomen and pelvis Technique: Multiple axial sections were obtained from above the dome of the diaphragm inferiorly through the pubic symphysis. Intravenous contrast was utilized. No oral contrast has been given. Reconstructed coronal and sagittal images were obtained. Comparison: No prior abdominal CT is available, previous abdominal ultrasound of 09/19/20 is available. Findings: Liver shows minimal fatty infiltration. Slight amount of focal fat is noted within the interlobar fissure which is within normal limits. Very minimal low density lesion is identified within the right lobe measuring 3 mm. This is nonspecific due to its small size but statistically is most likely due to a small cyst. There is thickening of the distal esophagus most likely relating to reflux esophagitis. Spleen appears normal in size. Spleen shows a low density lesion having the appearance of a cyst measuring approximately 6 mm. No additional abnormality is seen within the spleen. Kidneys show symmetric contrast enhancement. Left kidney shows a small low-density lesion within the midpole which is too small to measure by Hounsfield units but measures about 4 mm in length. No additional abnormalities are seen within the kidneys. Pancreas is within normal limits. Aorta shows no aneurysm. No retroperitoneal adenopathy or mesenteric abnormalities are noted. Small amount of fluid is seen within the pelvis. Etiology of this fluid is not appreciated on this exam with certainty. Appendix is seen which is normal in size. No discrete bowel abnormalities are definitely appreciated. Bone window settings were reviewed which show spondylitic defects at L5-S1 with minimal spondylolisthesis. No acute osseous abnormality is otherwise seen. Impression: 1. Slight esophageal wall thickening suggesting reflux esophagitis. 2. Small amount of fluid within the pelvis which I do not see an etiology for. 3. Other findings as noted above which are nonacute. Diagnostic code #3
[2020-09-21] MEDS ORDERED: Sucralfate 1 GM Tab PO ONE (13:17)
[2020-09-21] MEDS ORDERED: Sucralfate Suspension 1 GM/10 ML Cup PO ONE (13:30)
[2020-09-21] MEDS ORDERED: Acetaminophen 325 MG Tab PO ONE (16:21)
== END 2020-09-21 16:30 | disposition home or self-care (01) ==
LOC: JD.ED 10:35
DX: K20.90 Esophagitis, unspecified without bleeding (principal); Z87.891 Personal history of nicotine dependence
CPT/HCPCS: 36415; 71045; 74177; 80053; 80179; 81003; 83605; 83690; 83735; 84484; 85025; 86140; 93005; 96365; 96366; 99285; A9270; J3480; J7030; Q9967; 93010; 99284